=== PATIENT | female | born 1965 | race Caucasian/White ===

== ENCOUNTER 2019-11-28 12:40 | Inpatient (IN) ==
[2019-11-28] MEDS ORDERED: Isovue-370 500 ML BOTTLE IVP ONE (13:21)
[2019-11-28 13:38] LABS: Basophils # 0.1 K/mcL (0.0-0.2); Basophils % 0.9 %; Eosinophils # 0.4 K/mcL (0.0-0.6); Eosinophils % 3.9 %; Hematocrit 35.9 % (35.3-44.9); Hemoglobin 11.4 g/dL (11.5-15.4); Immature Granulocytes % 0.4 % (0-4); Lymphocytes # 2.8 K/mcL (0.6-4.6); Lymphocytes % 26.8 %; Mean Corpuscular HGB Conc 31.8 g/dL (31.6-35.5); Mean Corpuscular Hemoglobin 23.6 pg (28.0-33.3); Mean Corpuscular Volume 74.3 fL (83.0-100.0); Mean Platelet Volume 11.5 fL (9.4-12.4); Monocytes # 0.7 K/mcL (0.0-1.3); Monocytes % 6.5 %; Neutrophils # 6.5 K/mcL (1.6-8.9); Platelet Count 431 K/mcL (140-400); Red Blood Count 4.83 M/mcL (3.82-4.97); Red Cell Distribution Width 18.3 % (11.5-14.5); Segmented Neutrophils % 61.5 %; White Blood Count 10.5 K/mcL (4.3-11.1)
[2019-11-28 13:47] LABS: INR 1.1; Prothrombin Time 12.4 Seconds (9.4-12.1)
[2019-11-28 13:50] LABS: Activated Partial Thrombo Time 31.5 Seconds (26.0-36.0)
[2019-11-28 13:59] LABS: Alanine Aminotransferase 13 Units/L (7-52); Albumin 4.1 g/dL (3.5-5.7); Albumin/Globulin Ratio 1.4 (1.1-2.2); Alkaline Phosphatase 70 Units/L (34-104); Aspartate Amino Transferase 14 Units/L (13-39); BUN/Creatinine Ratio 24 (6-26); Bilirubin,Total 0.4 mg/dL (0.3-1.0); Blood Urea Nitrogen 20 mg/dL (6-20); Calcium 9.3 mg/dL (8.6-10.3); Carbon Dioxide 25 mEq/L (23-29); Chloride 102 mEq/L (98-107); Globulin 2.9 g/dL (2.4-3.5); Glucose 99 mg/dL (70-105); Lipase 28 Units/L (11-82); Osmolality,Calculated 285 (280-300); Potassium 3.9 mEq/L (3.5-5.1); Sodium 136 mEq/L (136-145); eGFR For African Americans > 60 (> 60); eGFR For Non-African Americans > 60 (> 60)
[2019-11-28] MEDS ORDERED: Ondansetron 4 MG/2 ML VIAL IVP PRN (16:50)
[2019-11-28] MEDS ORDERED: Naloxone 0.4 MG/ML INJ IVP PRN (16:50)
[2019-11-28] MEDS ORDERED: Morphine Sulfate 2 MG/ML SYRINGE IVP PRN (17:07)
[2019-11-28] MEDS: Pantoprazole 40 MG VIAL IVP SCH (18:06)
[2019-11-28] MEDS: 0.9 % Sodium Chloride 1,000 ML IVC SCH (18:06)
[2019-11-29 02:21] LABS: Basophils # 0.1 K/mcL (0.0-0.2); Basophils % 0.7 %; Eosinophils # 0.4 K/mcL (0.0-0.6); Eosinophils % 4.3 %; Hematocrit 32.8 % (35.3-44.9); Hemoglobin 10.1 g/dL (11.5-15.4); Immature Granulocytes % 0.4 % (0-4); Lymphocytes # 2.5 K/mcL (0.6-4.6); Lymphocytes % 24.8 %; Mean Corpuscular HGB Conc 30.8 g/dL (31.6-35.5); Mean Corpuscular Hemoglobin 24.3 pg (28.0-33.3); Mean Platelet Volume 11.7 fL (9.4-12.4); Monocytes # 0.7 K/mcL (0.0-1.3); Monocytes % 6.4 %; Neutrophils # 6.5 K/mcL (1.6-8.9); Platelet Count 341 K/mcL (140-400); Red Blood Count 4.15 M/mcL (3.82-4.97); Segmented Neutrophils % 63.4 %; White Blood Count 10.2 K/mcL (4.3-11.1)
[2019-11-29 02:37] LABS: BUN/Creatinine Ratio 20 (6-26); Blood Urea Nitrogen 15 mg/dL (6-20); Carbon Dioxide 26 mEq/L (23-29); Chloride 103 mEq/L (98-107); Glucose 107 mg/dL (70-105); Osmolality,Calculated 283 (280-300); Potassium 3.8 mEq/L (3.5-5.1); Sodium 136 mEq/L (136-145); eGFR For African Americans > 60 (> 60); eGFR For Non-African Americans > 60 (> 60)
[2019-11-29] MEDS: Pantoprazole 40 MG VIAL IVP SCH ×2 (05:25→17:30)
[2019-11-29 08:50] LABS: Uric Acid 5.6 mg/dL (2.3-7.6)
[2019-11-29] MEDS: 0.9 % Sodium Chloride 1,000 ML IVC SCH ×2 (08:55→23:04)
[2019-11-29] MEDS ORDERED: Acetaminophen IV 500 MG/50 ML INFUS..BTL IVPB ONE (09:10)
[2019-11-29] MEDS ORDERED: Lidocaine -MPF 2% 2 ML VIAL ONE (09:51)
[2019-11-29] MEDS ORDERED: *HR* Propofol 200 MG/20 ML VIAL IVP ONE ×2 (09:51→10:21)
[2019-11-29] MEDS ORDERED: 0.9 % Sodium Chloride 1,000 ML IVC ONE (11:48)
[2019-11-29] MEDS ORDERED: Metoclopramide 10 MG/10 ML UD.LIQ PO PRN (11:50)
[2019-11-29] MEDS: Acetaminophen IV 1,000 MG/100 ML INFUS..BTL IVPB SCH ×2 (13:17→17:31)
[2019-11-29] MEDS: BuPROPion SR (12 HR) 150 MG TABLET PO SCH ×2 (13:27→23:03)
[2019-11-30] MEDS: Acetaminophen IV 1,000 MG/100 ML INFUS..BTL IVPB SCH ×2 (01:31→06:44)
[2019-11-30 05:19] LABS: Basophils % 0.6 %; Eosinophils # 0.4 K/mcL (0.0-0.6); Eosinophils % 5.7 %; Hematocrit 29.4 % (35.3-44.9); Immature Granulocytes % 0.3 % (0-4); Lymphocytes # 2.2 K/mcL (0.6-4.6); Lymphocytes % 30.3 %; Mean Corpuscular HGB Conc 30.6 g/dL (31.6-35.5); Mean Corpuscular Hemoglobin 24.5 pg (28.0-33.3); Mean Corpuscular Volume 80.1 fL (83.0-100.0); Mean Platelet Volume 11.6 fL (9.4-12.4); Monocytes # 0.5 K/mcL (0.0-1.3); Monocytes % 7.2 %; Neutrophils # 4.1 K/mcL (1.6-8.9); Platelet Count 275 K/mcL (140-400); Red Blood Count 3.67 M/mcL (3.82-4.97); Red Cell Distribution Width 18.4 % (11.5-14.5); Segmented Neutrophils % 55.9 %; White Blood Count 7.3 K/mcL (4.3-11.1)
[2019-11-30 05:34] LABS: BUN/Creatinine Ratio 16 (6-26); Blood Urea Nitrogen 11 mg/dL (6-20); Calcium 8.7 mg/dL (8.6-10.3); Carbon Dioxide 27 mEq/L (23-29); Chloride 106 mEq/L (98-107); Glucose 104 mg/dL (70-105); Osmolality,Calculated 294 (280-300); Potassium 3.8 mEq/L (3.5-5.1); Sodium 142 mEq/L (136-145); eGFR For African Americans > 60 (> 60); eGFR For Non-African Americans > 60 (> 60)
[2019-11-30] MEDS: Pantoprazole 40 MG VIAL IVP SCH ×2 (06:44→17:35)
[2019-11-30] MEDS: 0.9 % Sodium Chloride 1,000 ML IVC SCH (08:28)
[2019-11-30] MEDS: BuPROPion SR (12 HR) 150 MG TABLET PO SCH (08:28)
[2019-11-30] MEDS ORDERED: Acetaminophen IV 1,000 MG/100 ML INFUS..BTL IVPB PRN (11:15)
[2019-11-30] MEDS ORDERED: Propofol 500 MG/50 ML INFUS..BTL ONE (13:01)
[2019-11-30] MEDS ORDERED: Lidocaine -MPF 2% 2 ML VIAL ONE ×2 (13:02→18:18)
[2019-11-30] MEDS ORDERED: Albuterol 2.5 MG/3 ML NEBULIZER IH ONE (15:26)
[2019-11-30] MEDS ORDERED: Lidocaine -MPF 4% 5 ML AMPUL ONE (18:18)
[2019-11-30] MEDS ORDERED: *HR* FentaNYL (PF) 100 MCG/2 ML VIAL ONE ×2 (18:18→19:50)
[2019-11-30] MEDS ORDERED: *HR* Rocuronium Bromide 50 MG/5 ML VIAL ONE (18:18)
[2019-11-30] MEDS ORDERED: *HR* Propofol 200 MG/20 ML VIAL IVP ONE (18:18)
[2019-11-30] MEDS ORDERED: Dexamethasone 4 MG/ML VIAL ONE (18:18)
[2019-11-30] MEDS ORDERED: Ondansetron 4 MG/2 ML VIAL ONE ×3 (18:18→22:55)
[2019-11-30] MEDS ORDERED: *HR* HYDROmorphone (PF) 1 MG/ML SYRINGE IVP PRN (18:24)
[2019-11-30] MEDS ORDERED: ceFAZolin 2,000 MG in Water for inj. (sterile) 20 ML IVP ONE (18:48)
[2019-11-30] MEDS ORDERED: Ketorolac 30 MG/ML VIAL ONE (20:30)
[2019-11-30] MEDS ORDERED: *HR* HYDROMORPHONE 2 MG/ML VIAL ONE (21:01)
[2019-11-30] MEDS ORDERED: Neostigmine Methylsulfate 3 MG/3 ML SYRINGE ONE (21:18)
[2019-11-30] MEDS ORDERED: Naloxone 0.4 MG/ML INJ ONE (21:43)
[2019-11-30] MEDS ORDERED: Ondansetron 4 MG/2 ML VIAL IVP ONE (22:57)
[2019-11-30] MEDS ORDERED: *HR* OxyCODONE/APAP 5/325 TABLET PO PRN (23:25)
[2019-11-30] MEDS ORDERED: *HR* Metoprolol 5 MG/5 ML VIAL IVP PRN (23:25)
[2019-11-30] MEDS ORDERED: 0.9 % Sodium Chloride 1,000 ML IVC SCH (23:25)
[2019-11-30] MEDS ORDERED: Ondansetron 4 MG/2 ML VIAL IVP PRN (23:25)
[2019-12-01 05:04] LABS: Basophils % 0.2 %; Eosinophils % 0.2 %; Hematocrit 32.4 % (35.3-44.9); Hemoglobin 9.6 g/dL (11.5-15.4); Immature Granulocytes % 0.4 % (0-4); Lymphocytes # 0.5 K/mcL (0.6-4.6); Lymphocytes % 3.6 %; Mean Corpuscular HGB Conc 29.6 g/dL (31.6-35.5); Mean Corpuscular Hemoglobin 24.3 pg (28.0-33.3); Mean Platelet Volume 11.7 fL (9.4-12.4); Monocytes # 0.1 K/mcL (0.0-1.3); Monocytes % 0.8 %; Platelet Count 300 K/mcL (140-400); Red Blood Count 3.95 M/mcL (3.82-4.97); Red Cell Distribution Width 18.4 % (11.5-14.5); Segmented Neutrophils % 94.8 %
[2019-12-01 05:05] LABS: Neutrophils # 12.4 K/mcL (1.6-8.9); White Blood Count 13.1 K/mcL (4.3-11.1)
[2019-12-01 05:32] LABS: BUN/Creatinine Ratio 14 (6-26); Blood Urea Nitrogen 12 mg/dL (6-20); Calcium 9.1 mg/dL (8.6-10.3); Carbon Dioxide 22 mEq/L (23-29); Chloride 106 mEq/L (98-107); Glucose 151 mg/dL (70-105); Osmolality,Calculated 291 (280-300); Potassium 4.5 mEq/L (3.5-5.1); Sodium 139 mEq/L (136-145); eGFR For African Americans > 60 (> 60); eGFR For Non-African Americans > 60 (> 60)
[2019-12-01] MEDS: ceFAZolin 2,000 MG in 0.9 % Sodium Chloride 100 ML IVPB SCH ×2 (05:55→13:15)
[2019-12-01] MEDS ORDERED: Pantoprazole 40 MG VIAL IVP SCH (06:00)
[2019-12-01] MEDS: BuPROPion SR (12 HR) 150 MG TABLET PO SCH (08:09)
[2019-12-01] MEDS: 0.9 % Sodium Chloride 1,000 ML IVC SCH (08:09)
[2019-12-01] MEDS ORDERED: Cholecalciferol (D-3) 1,000 UNIT (25MCG) TABLET PO SCH (09:00)
[2019-12-01] MEDS: Sucralfate 1 GM TABLET PO SCH ×2 (13:12→14:05)
[2019-12-01 15:17] VITALS: BP 110/67
== END 2019-12-01 18:07 | disposition home or self-care (01) | DRG 220 ==
LOC: EMEROOARM 12:40 → 3ANU 12:40 → SUATTDRO 15:44 → 3ANU 15:53
PROVIDERS: ADMIT Internal Medicine; ATTEND Internal Medicine